=== PATIENT | female | born 1955 | race African-American/Black ===

== ENCOUNTER 2018-02-10 15:55 | Emergency (ER) | payer MEDICAID ==
[~2018-02-10] VITALS: Ht 154.9 cm; Wt 77.0 kg
[2018-02-10 16:30] VITALS: BP 163/64
[2018-02-10] MEDS ORDERED: KETOROLAC 60MG/2ML VIAL IM ONE (16:45)
== END 2018-02-10 19:05 | disposition home or self-care (01) ==
LOC: ER 16:01
DX: M19.011 Primary osteoarthritis, right shoulder (principal); J45.909 Unspecified asthma, uncomplicated; E11.9 Type 2 diabetes mellitus without complications; I10 Essential (primary) hypertension; F17.200 Nicotine dependence, unspecified, uncomplicated; Z86.73 Personal history of transient ischemic attack (TIA), and cerebral infarction without residual deficits; Z98.890 Other specified postprocedural states; Z91.018 Allergy to other foods
CPT/HCPCS: 73030; 96372; 99283; J1885

== ENCOUNTER 2018-06-19 22:50 | Emergency (ER) | payer MEDICAID ==
[~2018-06-19] VITALS: Ht 165.1 cm; Wt 73.0 kg
[2018-06-20 06:15] VITALS: BP 121/60
== END 2018-06-20 06:34 | disposition home or self-care (01) ==
LOC: ER 22:50
DX: R42 Dizziness and giddiness (principal); I10 Essential (primary) hypertension; F17.210 Nicotine dependence, cigarettes, uncomplicated; Z71.6 Tobacco abuse counseling
CPT/HCPCS: 82375; 99283; 99406